=== PATIENT | male | born 1990 | race Two or more races ===

== ENCOUNTER 2018-10-04 14:45 | Emergency (ER) | payer SELFPAY ==
[~2018-10-04] VITALS: Ht 170.2 cm; Wt 66.9 kg
[~2018-10-04 14:45] MED LIST: EMTR1TAB11 PO; ISEN400 PO
[2018-10-04 14:47] VITALS: Ht 170.2 cm; Wt 66.9 kg
--- NOTE | 2018-10-04 15:54 | ERD ---
ER Documentation Chief Complaint Chief Complaint exposed to hiv postive person , wants prphylactic rx HPI Patient is a 27-year-old male, past medical history of hepatitis B, presents to the ER for concerns of requesting postexposure prophylactic treatment to HIV. Patient states he has anal sex yesterday and he was told by individual that individual is HIV positive. Per patient, this individual's CD4 count undetectable. Patient states he has taken prophylactic treatment in the past. Patient states he is currently in the process of getting new insurance this he decided to come to the ER for treatment. Patient states [facility] for [facility]-up and treatment. Patient denies past medical history of liver disease. ROS All systems reviewed and are negative except as per history of present illness. Medications Home Meds Active Scripts Emtricitabine-Tenofovir* (Truvada*) 200-300 Mg Tablet, 1 TAB PO DAILY for 30 Days, TAB Prov:FEROZ SHORT PA-C 10/04/18 Raltegravir Potassium* (Isentress*) 400 Mg Tablet, 400 MG PO BID, #60 TAB Prov:FEROZ SHORT PA-C 10/04/18 Allergies Allergies: Coded Allergies: No Known Allergy (Unverified , 10/04/18) PMhx/Soc Hx Alcohol Use: No Hx Substance Use: No Hx Tobacco Use: No Smoking Status: Never smoker FmHx Family History: No diabetes Physical Exam Vitals Vital Signs Date Temp Pulse Resp B/P (MAP) Pulse Ox O2 O2 Flow FiO2 Time Delivery Rate 10/04/18 97.6 81 18 121/70 98 Room Air 16:37 (87) 10/04/18 97.1 86 18 128/68 98 14:47 (88) Physical Exam GENERAL: Well-developed, well-nourished male. Appears in no acute distress. HEAD: Normocephalic, atraumatic. EYES: Pupils are equally reactive bilaterally. EOMs grossly intact. No c onjunctival erythema. ENT: Moist mucous membranes. No uvula deviation. No kissing tonsils. NECK: Supple. No meningismus. Normal range of motion of the neck. LUNG: Clear to auscultation bilaterally. No rhonchi, wheezing, rales or coarse breath sounds. HEART: Regular rate and rhythm. No murmurs, rubs or gallops. EXTREMITIES: Equal pulses bilaterally. No peripheral clubbing, cyanosis or edema. No unilateral leg swelling. NEUROLOGIC: Alert and oriented. Moving all four extremities without any dif ficulty. Normal speech. Steady gait. SKIN: Normal color. Warm and dry. No rashes or lesions. Result Diagram: 10/04/18 1536 10/04/18 1536 Results 24 hrs Laboratory Tests Test 10/04/18 15:36 White Blood Count 6.3 10^3/ul Red Blood Count 5.33 10^6/ul Hemoglobin 15.8 g/dl Hematocrit 46.4 % Mean Corpuscular Volume 87.1 fl Mean Corpuscular Hemoglobin 29.6 pg Mean Corpuscular Hemoglobin Concent 34.1 g/dl Red Cell Distribution Width 12.3 % Platelet Count 244 10^3/UL Mean Platelet Volume 9.3 fl Immature Granulocytes % 0.200 % Neutrophils % 57.3 % Lymphocytes % 30.2 % Monocytes % 10.1 % Eosinophils % 1.9 % Basophils % 0.3 % Nucleated Red Blood Cells % 0.0 /100WBC Immature Granulocytes # 0.010 10^3/ul Neutrophils # 3.6 10^3/ul Lymphocytes # 1.9 10^3/ul Monocytes # 0.6 10^3/ul Eosinophils # 0.1 10^3/ul Basophils # 0.0 10^3/ul Nucleated Red Blood Cells # 0.0 10^3/ul Sodium Level 142 mmol/L Potassium Level 4.6 mmol/L Chloride Level 106 mmol/L Carbon Dioxide Level 25 mmol/L Anion Gap 11 Blood Urea Nitrogen 12 mg/dl Creatinine 0.81 mg/dl Est Glomerular Filtrat Rate mL/min > 60 mL/min Glucose Level 93 mg/dl Calcium Level 10.2 mg/dl Total Bilirubin 1.2 mg/dl Direct Bilirubin 0.00 mg/dl Indirect Bilirubin 1.2 mg/dl Aspartate Amino Transf (AST/SGOT) 24 IU/L Alanine Aminotransferase (ALT/SGPT) 26 IU/L Alkaline Phosphatase 75 IU/L Total Protein 8.6 g/dl Albumin 4.7 g/dl Globulin 3.90 g/dl Albumin/Globulin Ratio 1.20 Hepatitis B Surface Antibody POSITIVE Procedures/MDM MEDICAL DECISION MAKING: Patient is a 27-year-old male, past medical history of hepatitis B, presents the ER requesting postexposure for prophylaxis treatment. Patient states that he recently had a sexual encounter with an individual who is HIV positive. Patient states his individuals CD4 count is 100. Vital signs were reviewed. Patient is afebrile. Patient was not hypoxic. Patient was hemodynamically stable. CBC showed no evidence of systemic infection or severe anemia. CMP showed no evidence of electrolyte abnormalities, severe acidosis, alkalosis, renal failure, or liver disease. Hepatitis B, hepatitis C and HIV labs are pending at this time. Patient advised to contact medical records for his results in 4 to 5 days. Patient will be given 1 month supply for Truvada and Isentress. Patient states that [facility] and states he will follow-up with providers there for additional medications and testing. DISCHARGE: At this time, patient is stable for discharge and outpatient management. I have instructed the patient to follow-up with his/her primary care physician in 1-2 days. I have discussed with the patient the possibility of needing to see a specialist for further workup and imaging studies if symptoms persist. I have instructed the patient to promptly return to the ER for any new or worsening symptoms including increased pain, fever, nausea, vomiting, weakness or LOC. The patient and/or family expressed understanding of and agreement with this plan. All questions were answered. Home care instructions were provided. Disclaimer: Inadvertent spelling and grammatical errors are likely due to EHR/dictation software use and do not reflect on the overall quality of patient care. Also, please note that the electronic time recorded on this note does not necessarily reflect the actual time of the patient encounter.Is on them Departure Diagnosis: Primary Impression: History of exposure to HIV Additional Impression: Encounter for laboratory test Condition: Fair Patient Instructions: Body Fluid Exposure, Not Health Care Worker Referrals: [facility] YOU HAVE RECEIVED A MEDICAL SCREENING EXAM AND THE RESULTS INDICATE THAT YOU DO NOT HAVE A CONDITION THAT REQUIRES URGENT TREATMENT IN THE EMERGENCY DEPARTMENT. FURTHER EVALUATION AND TREATMENT OF YOUR CONDITION CAN WAIT UNTIL YOU ARE SEEN IN YOUR DOCTORS OFFICE WITHIN THE NEXT 1-2 DAYS. IT IS YOUR RESPONSIBILITY TO MAKE AN APPOINTMENT FOR FOLOW-UP CARE. IF YOU HAVE A PRIMARY DOCTOR --you should call your primary doctor and schedule an appointment IF YOU DO NOT HAVE A PRIMARY DOCTOR YOU CAN CALL OUR PHYSICIAN REFERRAL HOTLINE AT IF YOU CAN NOT AFFORD TO SEE A PHYSICIAN YOU CAN CHOSE FROM THE FOLLOWING [facility] [address] [facility] [address] [facility] [address] [facility] [address] [facility] [address] [facility]. [facility]. [address] [facility] [place]. [facility] YOU HAVE RECEIVED A MEDICAL SCREENING EXAM AND THE RESULTS INDICATE THAT YOU DO NOT HAVE A CONDITION THAT REQUIRES URGENT TREATMENT IN THE EMERGENCY DEPARTMENT. FURTHER EVALUATION AND TREATMENT OF YOUR CONDITION CAN WAIT UNTIL YOU ARE SEEN IN YOUR DOCTORS OFFICE WITHIN THE NEXT 1-2 DAYS. IT IS YOUR RESPONSIBILITY TO MAKE AN APPOINTMENT FOR FOLOW-UP CARE. IF YOU HAVE A PRIMARY DOCTOR --you should call your primary doctor and schedule and appointment IF YOU DO NOT HAVE A PRIMARY DOCTOR YOU CAN CALL OUR PHYSICIAN REFERRAL HOTLINE AT . IF YOU CAN NOT AFFORD TO SEE A PHYSICIAN YOU CAN CHOSE FROM THE FOLLOWING [facility] INSTITUTIONS: [facility] [address] [place] [address] [facility] [address] [place] [address] [facility] [address] [place] [address] Additional Instructions: Follow up with [facility] for further monitoring and management. Call your primary care doctor TOMORROW for an appointment during the next 1-2 days.See the doctor sooner or return here if your condition worsens before your appointment time. FEROZ SHORT PA-C Oct 04, 2018 15:53
[2018-10-04 16:37] VITALS: BP 121/70; PULSE 81; RESP 18
== END 2018-10-04 16:39 | disposition home or self-care (01) ==
LOC: FTE 14:45
DX: Z20.6 Contact with and (suspected) exposure to human immunodeficiency virus [HIV] (principal); Z00.00 Encounter for general adult medical examination without abnormal findings
CPT/HCPCS: 36415; 80053; 85025; 86706; 99283